=== PATIENT | male | born 1955 | race Caucasian/White ===

== ENCOUNTER → 2017-04-20 | Outpatient (CLI) | payer OTHER ==
[2017-04-20 12:19] LABS: Blood Urea Nitrogen 13 mg/dL (9-20); Non-African American GFR(MDRD) >60 (>60 ml/min/1.73 sqM)
--- NOTE | 2017-04-20 13:58 | CT ---
EXAMINATION TYPE: CT urogram wo/w con DATE OF EXAM: 04/20/2017 COMPARISON: 12/11/2014 HISTORY: Microscopic hematuria CT DLP: 2401 mGycm, Automated Exposure Control for Dose Reduction was Utilized. CONTRAST: CT scan of the abdomen and pelvis is performed with oral and without and with IV Contrast, patient in jected with 100 mL of Omnipaque 300. FINDINGS: LUNG BASES: Focal pleural thickening measuring 5 mm versus subpleural pulmonary nodule is seen along the anterior right lower lobe. LIVER/GB: No significant abnormality is appreciated. No radiopaque calculi within the gallbladder. PANCREAS: No significant abnormality is seen. SPLEEN: No significant abnormality is seen. ADRENALS: No significant abnormality is seen. KIDNEYS: 7 mm calculus of the posterior right inferior pole is seen within a distal calyx, this is un changed from the prior exam. Left lower pole renal sinus cyst is also seen measuring 1.9 cm. No evide nce of obstructive uropathy. No evidence of nephrolithiasis. Right upper pole probable cyst is 4 mm and too small to accurately characterize. BOWEL: No significant abnormality is seen. PROSTATE/SEMINAL VESICLES: Heterogenous containing central zone calcifications and enlarged measuring approximately 5.4 cm in transverse dimension. Left fat filled inguinal hernias noted. LYMPH NODES: No greater than 1cm abdominal or pelvic lymph nodes are appreciated. OSSEOUS STRUCTURES: No significant abnormality is seen. IMPRESSION: 1. Unchanged nonobstructing 7 mm right lower pole calculus within a peripheral minor calyx. No eviden ce of obstructive uropathy bilaterally. 2. Heterogenous and enlarged prostate gland containing central zone calcifications. 3. Left 1.9 cm renal sinus cyst. 4. Probable right upper pole renal cyst although this is 4 mm and too small to accurately characteriz e.
== END | disposition home or self-care (01) ==
LOC: RADCTMAIN 11:35
PROVIDERS: ATTEND Urology
DX: N20.0 Calculus of kidney (principal); N40.0 Benign prostatic hyperplasia without lower urinary tract symptoms; N28.1 Cyst of kidney, acquired
CPT/HCPCS: 82565; 84520; 74178; 36415; 74400; Q9967

== ENCOUNTER 2017-07-20 07:58 | Day surgery (SDC) | payer BC, OTHER ==
[2017-07-16 10:08] VITALS: BMI 26.9
[~2017-07-20 07:58] MED LIST: LACTATED RINGERS 1,000 ML IV SCH; LIDOCAINE 1% 20 ML VIAL (10MG/ML) FOR IV START INTRADERMA PRN
[2017-07-20 08:18] VITALS: TEMP 98.8
[2017-07-20] MEDS ORDERED: PROPOFOL 10 MG/ML 20 ML VIAL IV ONE (09:42)
--- NOTE | 2017-07-20 09:49 | P.GSHP ---
History of Present Illness H&P Date: 07/20/17 Chief Complaint: Screening colonoscopy This is a 62-year-old male referred from Dr. Moreno. Patient presents today for screening colonoscopy. He denies a significant GI complaints. Past Medical History Past Medical History: CVA/TIA, GERD/Reflux, Hyperlipidemia, Hypertension Additional Past Medical History / Comment(s): no deficits from CVA History of Any Multi-Drug Resistant Organisms: None Reported Additional Past Surgical History / Comment(s): dental implants Past Anesthesia/Blood Transfusion Reactions: No Reported Reaction Smoking Status: Never smoker - Past Family History Brother(s) Family Medical History: Cancer Additional Family Medical History / Comment(s): colon/bladder Medications and Allergies Home Medications Medication Instructions Recorded Confirmed Type Aspirin EC [Ecotrin] 325 mg PO DAILY 07/16/17 07/20/17 History Hydrochlorothiazide 25 mg PO DAILY 07/16/17 07/20/17 History [Hydrochlorothiazide] Ranitidine HCl [Zantac] 150 mg PO DAILY 07/16/17 07/20/17 History Simvastatin [Simvastatin] 40 mg PO DAILY 07/16/17 07/20/17 History Allergies Allergy/AdvReac Type Severity Reaction Status Date / Time No Known Allergies Allergy Verified 07/16/17 10:00 Surgical - Exam Vital Signs Temp Pulse Resp BP 98.8 F 74 16 140/85 07/20/17 08:13 07/20/17 08:13 07/20/17 08:13 07/20/17 08:13 - General well developed, no distress - Eyes PERRL - ENT normal pinna - Neck no masses - Respiratory normal expansion - Cardiovascular Rhythm: regular - Abdomen Abdomen: soft, non tender Assessment and Plan Assessment: We'll perform screening colonoscopy.
--- NOTE | 2017-07-20 10:06 | P.OP ---
Date of Procedure: 07/20/17 Preoperative Diagnosis: Screening colonoscopy Postoperative Diagnosis: Mild diverticulosis Procedure(s) Performed: Colonoscopy Anesthesia: MAC Surgeon: Moiz Saenz Pathology: none sent Condition: stable Disposition: PACU Description of Procedure: The patient's placed on the endoscopy table in the lateral position. She received IV sedation. Digital rectal exam was performed which revealed no ebonized. The prostate was symmetric without nodules. The flexible colonoscope was then placed patient anus passed throughout the entire colon. The ileocecal valve was visually is. The cecum, ascending and transverse colon appeared normal. The descending and sigmoid had mild diverticulosis. There is known to diverticulitis. Scope was then brought back the rectum and this appeared normal. Scope withdrawn for patient.
[2017-07-20 10:33] VITALS: BP 136/101; PULSE 70; RESP 16
== END 2017-07-20 10:56 | disposition home or self-care (01) ==
LOC: ORWHC2ENDO 07:58
PROVIDERS: ATTEND Surgery
DX: Z12.11 Encounter for screening for malignant neoplasm of colon (principal); K57.30 Diverticulosis of large intestine without perforation or abscess without bleeding; K57.32 Diverticulitis of large intestine without perforation or abscess without bleeding; K21.9 Gastro-esophageal reflux disease without esophagitis; E78.5 Hyperlipidemia, unspecified; I10 Essential (primary) hypertension; Z80.0 Family history of malignant neoplasm of digestive organs; Z79.82 Long term (current) use of aspirin; Z79.899 Other long term (current) drug therapy; Z86.73 Personal history of transient ischemic attack (TIA), and cerebral infarction without residual deficits; Z80.52 Family history of malignant neoplasm of bladder
CPT/HCPCS: J2704; G0105; 45378

== ENCOUNTER → 2020-12-18 | Outpatient (CLI) | payer MEDICARE | END | disposition home or self-care (01) | DX: Z01.812 Encounter for preprocedural laboratory examination (principal) | CPT/HCPCS: 80053; 81001; 85610; 85730; 87070 ==

== ENCOUNTER → 2020-12-18 | Outpatient (CLI) | payer MEDICARE | END | disposition home or self-care (01) | DX: Z01.812 Encounter for preprocedural laboratory examination (principal) | CPT/HCPCS: 36415; 85025; 86850; 86900; 86901 ==

== ENCOUNTER 2020-12-25 08:09 | Day surgery (SDC) | payer BC, MEDICARE ==
[2020-12-21 10:13] VITALS: BMI 26.1
[~2020-12-25 08:09] MED LIST changes: +ACETAMINOPHEN TAB 500 MG TAB PO PRN; +GABAPENTIN 300 MG CAP PO PRN; -LACTATED RINGERS 1,000 ML IV SCH; +LIDOCAINE 1% (10MG/ML) FOR IV START INTRADERMA PRN; -LIDOCAINE 1% 20 ML VIAL (10MG/ML) FOR IV START INTRADERMA PRN; +MELOXICAM 7.5 MG TAB PO PRN; +TRANEXAMIC ACID 1,000 MG in SODIUM CHLORIDE 0.9% 100 ML IVPB PRN
[2020-12-25] MEDS: LACTATED RINGERS 1,000 ML IV SCH ×2 (08:45→09:05)
[2020-12-25] MEDS: ONDANSETRON 4 MG/2 ML VIAL IVP ONE ×2 (08:56→16:28)
[2020-12-25] MEDS: DEXAMETHASONE SOD PHOSPHATE 4 MG/ML 1 ML VIAL IV ONE ×2 (08:56→16:28)
[2020-12-25] MEDS ORDERED: SCOPOLAMINE 1.5MG/72HR PATCH TRANSDERM ONE (08:59)
[2020-12-25] MEDS ORDERED: ROCURONIUM 10 MG/ML (5 ML VIAL) IV ONE (09:05)
[2020-12-25] MEDS ORDERED: HYDROmorphone 0.2 MG/1 ML SYRINGE IVP PRN (09:05)
[2020-12-25] MEDS ORDERED: SUCCINYLCHOLINE CHLORIDE 100 MG/5 ML SYR IV ONE (09:05)
[2020-12-25] MEDS ORDERED: fentaNYL (PF) 50 MCG/ML 2 ML AMP ONE (09:05)
[2020-12-25] MEDS ORDERED: ONDANSETRON 4 MG/2 ML VIAL IVP PRN (09:05)
[2020-12-25] MEDS ORDERED: HEPARIN SODIUM,PORCINE 10,000 UNIT/ML 1 ML VIAL ONE (09:05)
[2020-12-25] MEDS ORDERED: TRANEXAMIC ACID 1,000 MG/10 ML VIAL ONE (09:05)
[2020-12-25] MEDS ORDERED: LIDOCAINE 1% INJ 10MG/ML (20 ML MDV) ONE (09:05)
[2020-12-25] MEDS ORDERED: GLYCOPYRROLATE 0.2 MG/ML 2 ML VIAL ONE (09:05)
[2020-12-25] MEDS ORDERED: HYDROmorphone 0.5 MG/0.5 ML SYRINGE IVP PRN ×2 (09:05)
[2020-12-25] MEDS ORDERED: NEOSTIGMINE 1 MG/ML 10 ML VIAL ONE (09:05)
[2020-12-25] MEDS ORDERED: SODIUM CHLORIDE 0.9% IRRIG 1,000 ML BTL IRRIGATION ONE (09:05)
[2020-12-25] MEDS ORDERED: NALOXONE 0.4 MG/ML 1 ML VIAL IV PRN ×2 (09:05→15:27)
[2020-12-25] MEDS ORDERED: MIDAZOLAM 2 MG/2 ML VIAL ONE (09:05)
[2020-12-25] MEDS ORDERED: PROPOFOL 10 MG/ML 20 ML VIAL IV ONE (09:05)
[2020-12-25] MEDS ORDERED: SODIUM CHLORIDE 0.9% 100 ML BAG ONE (09:05)
[2020-12-25] MEDS ORDERED: ceFAZolin 1,000 MG in SODIUM CHLORIDE 0.9% 1,000 ML IRRIGATION ONE (09:05)
[2020-12-25] MEDS ORDERED: HYDROcodone/APAP 7.5-325MG 1 EACH TAB PO PRN ×3 (09:06→15:30)
[2020-12-25] MEDS: ROPIVACAINE/EPI/CLONIDINE/KET 50 ML SYRINGE MISCELLANE PRN ×2 (09:36→10:20)
--- NOTE | 2020-12-25 10:20 | P.OP ---
Date of Procedure: 12/25/20 Preoperative Diagnosis: severe osteoarthritis of the right hip Postoperative Diagnosis: severe osteoarthritis of the right hip Procedure(s) Performed: right total hip arthroplasty with a direct anterior approach Implants: [employer] Polarstem standard size 6 [employer] R3, 3 hole hemispherical acetabular shell, 52 mm [employer] Reflection 6.5 mm cancellus screw, 20 mm 2 [employer] R3, XLPE 20 acetabular liner [employer]hew Oxinium femoral head 36 m, +0 All components were press-fit. The articulation is Oxinium on polyethylene. Anesthesia: GETA Surgeon: Brian Malik Fiberglass Finisher #1: Arina Salinas Estimated Blood Loss (ml): 400 (141 mL returned with Cell Saver) Pathology: other (femoral head) Condition: stable Disposition: PACU Indications for Procedure: After failure of conservative treatment we discussed the surgical and nonsurgical treatment options at length. Patient wishes to proceed with a total hip arthroplasty with a direct anterior approach. Complications specific to this procedure were discussed at length, including but not limited to infection, leg length discrepancy, dislocation, nerve injury, and fracture. Covid-19 was also discussed at length with the patient, and they are aware of the current policies and procedures. The patient was given the option of delaying surgery, but they elect to proceed knowing these risks. Patient is aware of all these complications and informed consent was obtained Operative Findings: the operative findings are consistent with severe osteoarthritis of the right hip Description of Procedure: Patient was seen and evaluated in the preoperative area and the consent was reviewed. The operative site was marked with a skin marker. The patient was then brought to the operating room and given preoperative antibiotics intravenously. 1 g of Tranexamic acid was also given intravenously. A general anesthetic was administered by the anesthesia department. The patient was then placed on the Union table with the bony prominences well-padded. The hip area was then prepped with a ChloraPrep solution and draped in the usual sterile fashion. A universal timeout was then performed, which confirmed the patient's name, surgical site, ALLERGIES, and procedure being performed on the consent. Next the incision site was located at 1 cm distal to the anterior superior iliac spine along the flexion crease of the hip. The skin and subcutaneous tissues were sharply incised. Incision was carefully dissected down to the fascia overlying the tensor fascia geovany muscle. This fascia was then incised in line with the incision. Care was taken to stay laterally in order to avoid injuring the lateral femoral cutaneous nerve. Next, using blunt finger dissection, the tensor fascia geovany muscle was dissected off its investing fascia. The muscle was then carefully retracted laterally with a cobra retractor over the lateral neck of the femur. Next, the circumflex vessels were identified and cauterized using the AquaMantis device. The anterior hip capsule was then exposed. The capsule was then opened and an inverted T fashion. Cobra retractors were then placed intracapsularly. The retractors were maintained intracapsular throughout the procedure. The proximal femur was then visualized. A small amount of traction was placed on the leg. The femoral neck was then osteotomized appropriate level above the lesser trochanter. A small wedge of bone was then removed from the remaining femoral head. Next, using a corkscrew the femoral head was removed from the acetabulum. On gross visual inspection, the femoral head had complete loss of articular cartilage and multiple periarticular osteophytes. The femoral head was then measured. Attention was then turned to the acetabulum. The acetabulum was exposed and any remaining labrum was excised. Sequential reaming of the acetabulum was performed using fluoroscopic guidance until there was a good bed of bleeding cancellus bone. When the appropriate size was reached, a trial was then placed. The position and fit of the trial was checked with fluoroscopy. The trial was then removed. Then, using fluoroscopic guidance, the final implant was impacted at 20 of anteversion and 40 of abduction, and fully seated in the acetabulum. 2 screws were then placed in the acetabulum. Again fluoroscopy was used to check position of the screws. Next, the liner was then impacted, with a 20 elevated liner located in the anterior superior quadrant. Component locking was confirmed. Attention was then directed to the femur. With the aid of the Union table, the femur was externally rotated to approximately 130, extended, and adducted under the opposite leg. A side hook was then placed under the proximal femur, and the side hook elevator was used to elevate the proximal femur while releasing the capsule. Retractors were then placed. A capsular release was performed, as well as a release of the conjoined tendon, which afforded excellent visualization of the proximal femur. Next, a box osteotome was used to lateralize the proximal femur. A stock handler floorperson was then used to locate the femoral canal. Sequential broaching was then performed with appropriate size which afforded excellent fixation in the proximal femur. A trial was then placed with appropriate head and neck, and the hip was gently reduced with the aid of the Union table. Fluoroscopy was then used to check position of the components, as well as to ensure equal leg lengths. The hip was then gently dislocated and the trials were then removed. Final implants were then impacted and the hip was again reduced. Final fluoroscopic x-rays confirmed that the components were in anatomic position, as well as equal leg lengths. The hip was also taken through range of motion, and found to be stable. The hip was then copiously irrigated with antibiotic solution with pulsatile lavage. The hip was then irrigated with Irrisept solution. The soft tissues were then injected with a ropivacaine solution, which consisted of 246.25 mg of ropivacaine, 0.5 mg of epinephrine, 30 mg of Toradol, 80 g of clonidine, and 48.45 mL of sterile water, for a total of 100 mL of fluid injected. A second dose of 1 g of Tranexamic acid was also given intravenously. Any blood collected by Cell Saver was then returned to the patient at this time. The fascia was then closed with 2-0 strata fix suture. The subcutaneous tissue was closed with 3-0 Vicryl. The subcuticular tissue was closed with 3-0 strata fix suture. The skin was then closed with Exofin skin glue. After the glue and dried, and Optifoam silver impregnated dressing was applied. The patient was then transferred to the recovery room in stable condition. The boiler assistant operator BINTA Delgado was required due to the complexity of surgery, and the need for skilled certified surgical assistant for positioning, draping, exposure, retraction, and closure of the wound.
[2020-12-25] MEDS ORDERED: LACTATED RINGERS 1,000 ML IV ONE (10:30)
[2020-12-25] MEDS ORDERED: MEPERIDINE 50 MG/ML SYRINGE IVP ONE (10:45)
[2020-12-25] MEDS ORDERED: KETOROLAC 15 MG/ML 1 ML VIAL IVP ONE (10:56)
[2020-12-25] MEDS: HYDROmorphone 0.5 MG/0.5 ML SYRINGE IVP PRN ×4 (10:56→11:23)
[2020-12-25] MEDS ORDERED: ONDANSETRON 4 MG/2 ML VIAL IVP ONE (10:56)
--- NOTE | 2020-12-25 11:26 | XR ---
EXAMINATION TYPE: XR Hip Limited RT DATE OF EXAM: 12/25/2020 CLINICAL HISTORY: Right hip pain and osteoarthritis. TECHNIQUE: Single AP portable view of right hip is obtained immediately postoperatively. COMPARISON: CT 12/11/2014 FINDINGS: Metallic hardware from right hip arthroplasty is seen and appears satisfactory in alignment and position. There is evidence of recent surgery with subcutaneous gas noted laterally. IMPRESSION: Metallic hardware from right hip arthroplasty is satisfactory in position.
[2020-12-25] MEDS ORDERED: MAGNESIUM HYDROXIDE 2,400 MG/10 ML CUP PO PRN (15:27)
--- NOTE | 2020-12-25 16:10 | XR ---
Single view right hip paper image INDICATION: Postoperative right hip COMPARISON: 12/11/2014 FINDINGS: Patient is status post right hip replacement with 2 acetabular screws. For full details please see th e operative report. IMPRESSION: Patient is status post right hip replacement with 2 acetabular screws. For full details please see th e operative report.
[2020-12-25] MEDS: SODIUM CHLORIDE 0.9% 1,000 ML IV SCH ×2 (16:28→23:30)
--- NOTE | 2020-12-25 16:45 | P.CONS ---
History of Present Illness - Reason for Consult Consult date: 12/25/20 - History of Present Illness History of Presenting Illness: Patient is a 65-year-old male with a past medical history of hypertension, hyperlipidemia, CVA with left-sided deficit with decreased sensation and osteoarthritis. He is currently admitted under orthopedic surgery team status post elective right total hip replacement due to advanced osteoarthritis. We have been consulted to follow along with this patient throughout his hospitalization for continued medical management. Patient is currently postoperative period and reports having postoperative nausea and vomiting. Scopolamine patch in place. Patient given Zofran. Continue hydrated with gentle hydration with IV fluids and we will advance diet as patient tolerates. Patient currently denies having any headache, lightheadedness, dizziness, chest pain, palpitations, shortness of breath, or experiencing any new or worsened numbness/tingling/weakness in extremities. Patient does have left-sided decreased sensation from previous CVA in 2012 in which patient takes aspirin and atorvastatin daily. Patient denies history of DVT or PE. Reports postoperative pain manageable at this time. Review of systems: Pertinent positives and negatives as discussed in HPI, a complete review of systems was performed and all other systems are negative. Physical exam: General: non toxic, no distress, appears at stated age Derm: warm, dry Head: atraumatic, normocephalic, symmetric Eyes: EOMI, no lid lag, anicteric sclera Mouth: no lip lesion, mucus membranes moist Cardiovascular: S1-S2 normal with regular rate and rhythm. No murmurs, gallops, or rubs noted. Posterior tibial pulses palpated bilaterally. Cap refill less than 2 seconds. Lungs: Respirations even, regular, and unlabored on room air. Lungs clear to auscultation bilaterally with no wheezes, rhonchi, or rales noted. No accessory muscle usage. Abdominal: soft, nontender to palpation, no guarding, no appreciable organomegaly Ext: no gross muscle atrophy, no edema, no contractures Neuro: GCS 15. Speech clear. CN II-XI grossly intact, no focal neuro deficits Psych: Alert, oriented, appropriate affect Assessment and Plan of Care: Status post right hip replacement secondary to advanced osteoarthritis -Pain management, DVT prophylaxis, weightbearing, PT/OT, and dressing changes per primary admitting orthopedic surgery team. -DVT prophylaxis currently with aspirin, KELY hose, and SCDs Postoperative nausea and vomiting -Zofran as needed for nausea and vomiting -Gentle hydration with IV fluids and advance diet as patient tolerates. Hypertension -Monitor vital signs and continue daily medication regimen with hydrochlorothiazide. Hyperlipidemia -Continue daily medication regimen with atorvastatin. -Heart healthy diet. History with left-sided residual deficit of decreased sensation -Safe and supportive care with assistance as needed -Fall precautions. -Continue aspirin and atorvastatin. Thank you for allowing us to participate in the care of this pleasant patient. Do not hesitate to contact us with questions. Someone can be reached from the [facility] [place] hospitalist group all hours of the day at [phone] or via [employer]. Past Medical History Past Medical History: CVA/TIA, GERD/Reflux, Hyperlipidemia, Hypertension Additional Past Medical History / Comment(s): no deficits from CVA History of Any Multi-Drug Resistant Organisms: None Reported Past Surgical History: Orthopedic Surgery Additional Past Surgical History / Comment(s): dental implants, wisdom teeth, colonoscopy Past Anesthesia/Blood Transfusion Reactions: Postoperative Nausea & Vomiting (PONV) Past Psychological History: No Psychological Hx Reported Smoking Status: Never smoker Past Alcohol Use History: None Reported Past Drug Use History: None Reported - Past Family History Brother(s) Family Medical History: Cancer Additional Family Medical History / Comment(s): colon/bladder Medications and Allergies Home Medications Medication Instructions Recorded Confirmed Type Aspirin EC [Ecotrin] 325 mg PO DAILY 07/16/17 12/25/20 History Simvastatin 40 mg PO HS 07/16/17 12/25/20 History hydroCHLOROthiazide 25 mg PO HS 07/16/17 12/25/20 History [Hydrochlorothiazide] Acetaminophen Tab [Tylenol] 650 mg PO Q6H PRN 12/21/20 12/25/20 History Ibuprofen 200 - 600 mg PO Q6H PRN 12/21/20 12/25/20 History Aspirin 325 mg PO BID #60 tab 12/25/20 Rx Celecoxib [CeleBREX] 200 mg PO DAILY 5 Days #5 capsule 12/25/20 Rx HYDROcodone/APAP 7.5-325MG [[place] 1 - 2 tab PO Q6H PRN #32 tab 12/25/20 Rx 7.5-325] Ondansetron Odt [Zofran Odt] 1 tab PO Q8HR PRN #10 tab 12/25/20 Rx Sennosides [Senokot] 2 tab PO DAILY PRN #60 tablet 12/25/20 Rx Allergies Allergy/AdvReac Type Severity Reaction Status Date / Time No Known Allergies Allergy Verified 12/25/20 08:36 Physical Exam Vitals: Vital Signs Temp Pulse Pulse Pulse Resp BP BP 12/25/20 15:50 97.5 F L 58 L 18 132/77 12/25/20 15:42 60 20 144/80 12/25/20 15:08 67 20 126/79 12/25/20 14:59 71 20 121/78 12/25/20 14:41 68 18 114/76 12/25/20 14:30 75 20 123/72 12/25/20 14:00 56 L 18 132/85 12/25/20 13:30 58 L 20 134/87 12/25/20 13:00 58 L 20 134/70 12/25/20 12:45 57 L 18 140/84 12/25/20 12:30 58 L 20 12/25/20 12:19 61 20 133/83 12/25/20 11:54 67 18 151/87 12/25/20 11:33 78 20 156/78 12/25/20 11:16 57 L 16 151/82 12/25/20 11:02 58 L 16 151/85 12/25/20 10:48 56 L 16 170/93 12/25/20 10:37 97.0 F L 64 12 171/89 12/25/20 08:45 98.4 F 87 18 141/83 Pulse Ox 12/25/20 15:50 96 12/25/20 15:42 97 12/25/20 15:08 97 12/25/20 14:59 98 12/25/20 14:41 96 12/25/20 14:30 95 12/25/20 14:00 97 12/25/20 13:30 97 12/25/20 13:00 97 12/25/20 12:45 97 12/25/20 12:30 12/25/20 12:19 97 12/25/20 11:54 95 12/25/20 11:33 98 12/25/20 11:16 94 L 12/25/20 11:02 100 12/25/20 10:48 100 12/25/20 10:37 97 12/25/20 08:45 99 Intake and Output 12/25/20 12/25/20 12/25/20 06:59 14:59 22:59 Intake Total 2075 Output Total 400 Balance 1675 Intake: IV 2075 Output: Estimated Blood Loss 400 Other: Weight 79.4 kg 79.4 kg
--- NOTE | 2020-12-25 17:01 | FL ---
Fluoroscopy HISTORY: Hip arthroplasty 16 seconds fluoroscopy time supplied to the referring clinician. 2 intraoperative C-arm images docum ent the procedure. See dictated report from orthopedic surgery.
[2020-12-25] MEDS: HYDROcodone/APAP 7.5-325MG 1 EACH TAB PO PRN (19:19)
[2020-12-25] MEDS: ASPIRIN 325 MG TAB PO SCH (19:19)
[2020-12-25] MEDS ORDERED: hydroCHLOROthiazide 25 MG TAB PO SCH (21:00)
[2020-12-25] MEDS ORDERED: ATORVASTATIN 20 MG TAB PO SCH (21:00)
[2020-12-25] MEDS ORDERED: SENNOSIDES-DOCUSATE SODIUM 1 EACH TAB PO SCH (21:00)
[2020-12-26 02:37] VITALS: TEMP 98.9
[2020-12-26] MEDS: HYDROcodone/APAP 7.5-325MG 1 EACH TAB PO PRN (06:08)
[2020-12-26 06:45] LABS: Basophils % (A) 0 %; Eosinophils % (A) 0 %; HCT 33.9 % (39.0-53.0); HGB 11.6 gm/dL (13.0-17.5); Lymphocytes # (A) 1.5 k/uL (1.0-4.8); Lymphocytes % (A) 15 %; MCH 32.1 pg (25.0-35.0); MCHC 34.3 g/dL (31.0-37.0); MCV 93.7 fL (80.0-100.0); Mean Platelet Volume 7.9; Monocytes # (A) 0.7 k/uL (0-1.0); Monocytes % (A) 8 %; Neutrophils # (A) 7.4 k/uL (1.3-7.7); Neutrophils % (A) 76 %; Platelet Count 135 k/uL (150-450); RBC 3.62 m/uL (4.30-5.90); RDW 12.4 % (11.5-15.5); WBC 9.7 k/uL (3.8-10.6)
--- NOTE | 2020-12-26 07:21 | P.DS ---
Providers Date of admission: 12/25/2020 Expected date of discharge: 12/26/20 Attending physician: Brian Malik Consults: 12/25/20 16:18 Consult Physician Routine Consulting Provider: Juancarlos Santizo Consult Reason/Comments: medical management Do you want consulting provider notified?: Yes Primary care physician: Paulo Moreno - Discharge Diagnosis(es) (1) Osteoarthritis of right hip Current Visit: Yes Status: Acute (2) Status post total hip replacement, right Current Visit: Yes Status: Acute Hospital Course: This is a 65-year-old male with known history of degenerative arthritis of the right hip. The patient presents for evaluation. After discussion and consideration patient elects to proceed with total hip arthroplasty with direct anterior approach. The patient is seen preoperatively by his primary care physician and cleared for surgery. Patient is admitted to [facility] on 12/25/2020 for total hip arthroplasty with direct anterior approach. The procedures performed without complication or sequelae. The patient is doing well postoperatively. Labs and vital signs are stable on day of discharge. On day of discharge patient's hip incision is healing well. There is minimal erythema. There is no drainage noted at this time. There is minimal soft tissue swelling to the hip and thigh. Patient has full foot and ankle motion without difficulty or pain. Neurovascular status to the right lower extremity is intact. Patient is discharged to home in good condition. Please see med rec for accurate list of home medications. Patient Condition at Discharge: Good Plan - Discharge Summary Discharge Rx Participant: Yes New Discharge Prescriptions: New Aspirin 325 mg PO BID #60 tab Celecoxib [CeleBREX] 200 mg PO DAILY 5 Days #5 capsule HYDROcodone/APAP 7.5-325MG [[place] 7.5-325] 1 - 2 tab PO Q6H PRN #32 tab PRN Reason: Pain Sennosides [Senokot] 2 tab PO DAILY PRN #60 tablet PRN Reason: Constipation Ondansetron Odt [Zofran Odt] 1 tab PO Q8HR PRN #10 tab PRN Reason: Nausea No Action Aspirin EC [Ecotrin] 325 mg PO DAILY Simvastatin 40 mg PO HS hydroCHLOROthiazide [Hydrochlorothiazide] 25 mg PO HS Acetaminophen Tab [Tylenol] 650 mg PO Q6H PRN PRN Reason: Pain Ibuprofen 200 - 600 mg PO Q6H PRN PRN Reason: Pain Discharge Medication List Aspirin EC [Ecotrin] 325 mg PO DAILY 07/16/17 [History] Simvastatin 40 mg PO HS 07/16/17 [History] hydroCHLOROthiazide [Hydrochlorothiazide] 25 mg PO HS 07/16/17 [History] Acetaminophen Tab [Tylenol] 650 mg PO Q6H PRN 12/21/20 [History] Ibuprofen 200 - 600 mg PO Q6H PRN 12/21/20 [History] Aspirin 325 mg PO BID #60 tab 12/25/20 [Rx] Celecoxib [CeleBREX] 200 mg PO DAILY 5 Days #5 capsule 12/25/20 [Rx] HYDROcodone/APAP 7.5-325MG [[place] 7.5-325] 1 - 2 tab PO Q6H PRN #32 tab 12/25/20 [Rx] Ondansetron Odt [Zofran Odt] 1 tab PO Q8HR PRN #10 tab 12/25/20 [Rx] Sennosides [Senokot] 2 tab PO DAILY PRN #60 tablet 12/25/20 [Rx] Follow up Appointment(s)/Referral(s): [facility], [NON-STAFF] - Brian Malik DO [Doctor of Osteopathic Medicine] - 01/07/21 9:45 am Patient Instructions/Handouts: *Surgery [facility] - (Anesthesia) Discharge Instructions Outpatient Surgery, *Surgery [facility] - Scopalamine Patch Instructions, How to Use an Incentive Spirometer (DC), Total Hip Replacement (DC) Activity/Diet/Wound Care/Special Instructions: Weightbearing as tolerated with walker. Leave dressing intact. Dressing may be removed by home care nurse or by patient in 7 days. Then change dressing twice daily until follow up. May shower with initial dressing intact and after removal. If dressing become saturated, please remove. Please take aspirin 325mg twice daily for 30 days to prevent blood clots. Recommend use of compression stockings daily until follow up to help prevent swelling and blood clots. May remove at night before sleeping. Please follow[facility]up with [facility] 2 weeks and call with any questions or concerns, . Discharge Disposition: HOME WITH HOME HEALTH SERVICES
[2020-12-26 07:57] VITALS: BP 111/59; PULSE 74; RESP 17
[2020-12-26] MEDS: ASPIRIN 325 MG TAB PO SCH (08:33)
--- NOTE | 2020-12-26 10:56 | P.PN ---
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 He is currently admitted under orthopedic surgery team status post elective right total hip replacement due to advanced osteoarthritis. We have been consulted to follow along with this patient throughout his hospitalization for continued medical management. Patient is currently day 1 postop and is doing well. He has been ambulatory in room without difficulties. He states postoperative pain is managed and denies having any further episodes of nausea or vomiting. Patient tolerating oral intake without any difficulties. He denies having any headache, lightheadedness, dizziness, chest pain, palpitations, shortness of breath, or experiencing any numbness/swelling/weakness in his extremities. Physical exam: General: non toxic, no distress, appears at stated age Derm: warm, dry Head: atraumatic, normocephalic, symmetric Eyes: EOMI, no lid lag, anicteric sclera Mouth: no lip lesion, mucus membranes moist Cardiovascular: S1-S2 normal with regular rate and rhythm. No murmurs, gallops, or rubs noted. Posterior tibial pulses palpated bilaterally. Cap refill less than 2 seconds. Lungs: Respirations even, regular, and unlabored on room air. Lungs clear to auscultation bilaterally with no wheezes, rhonchi, or rales noted. No accessory muscle usage. Abdominal: soft, nontender to palpation, no guarding, no appreciable org anomegaly Ext: no gross muscle atrophy, no edema, no contractures. Postoperative dressing intact. No signs of bleeding or drainage. Neuro: GCS 15. Speech clear. CN II-XI grossly intact, no focal neuro deficits Psych: Alert, oriented, appropriate affect Assessment and Plan of Care: Status post right hip replacement secondary to advanced osteoarthritis -Pain management, DVT prophylaxis, weightbearing, PT/OT, and dressing changes per primary admitting orthopedic surgery team. -DVT prophylaxis currently with aspirin, KELY hose, and SCDs Postoperative nausea and vomiting, resolved Hypertension -Monitor vital signs and continue daily medication regimen with hydrochlorothiazide. Hyperlipidemia -Continue daily medication regimen with atorvastatin. -Heart healthy diet. History with left-sided residual deficit of decreased sensation -Safe and supportive care with assistance as needed -Fall precautions. -Continue aspirin and atorvastatin. Thank you for allowing us to participate in the care of this pleasant patient. Do not hesitate to contact us with questions. Someone can be reached from the [facility] hospitalist group all hours of the day at [phone] or via perfect serve. Objective - Vital Signs Vital signs: Vital Signs Temp 98.9 F 12/26/20 07:56 Pulse 74 12/26/20 07:56 Resp 17 12/26/20 07:56 BP 111/59 12/26/20 07:56 Pulse Ox 96 12/26/20 07:56 Intake & Output 12/25/20 12/26/20 12/26/20 18:59 06:59 18:59 Intake Total 2076 Output Total 400 550 Balance 1676 -550 Weight 79.4 kg Intake: IV 2075 Output: Urine 550 Estimated Blood Loss 400 - Labs CBC & Chem 7: 12/26/20 05:39 Labs: Abnormal Lab Results - Last 24 Hours (Table) 12/26/20 Range/Units 05:39 RBC 3.62 L (4.30-5.90) m/uL Hgb 11.6 L (13.0-17.5) gm/dL Hct 33.9 L (39.0-53.0) % Plt Count 135 L (150-450) k/uL
== END 2020-12-26 11:25 | disposition home health service (06) ==
LOC: OR 08:09 → EDSTATUS 09:20 → 4SSUR 10:42 → OR 12-26 11:25
PROVIDERS: ATTEND Orthopaedic Surgery
DX: M16.11 Unilateral primary osteoarthritis, right hip (principal); Z79.82 Long term (current) use of aspirin; Z79.899 Other long term (current) drug therapy; I10 Essential (primary) hypertension; E78.5 Hyperlipidemia, unspecified; I69.398 Other sequelae of cerebral infarction; K21.9 Gastro-esophageal reflux disease without esophagitis; Z79.1 Long term (current) use of non-steroidal anti-inflammatories (NSAID)
CPT/HCPCS: 27130; 97116; 97110; 97161; 97165; 86891; 85025; 88300; 73501; C1776; J2250; J1644; J1100; J2710; J2175; J0690 ×3; J2405; J2001; J3010; J1170; J1885; J0330; J2704; 86850; 86900; 86901

== ENCOUNTER → 2021-05-08 | Outpatient (CLI) | payer MEDICARE ==
--- NOTE | 2021-05-08 15:32 | US ---
EXAMINATION TYPE: US prostate transrectal DATE OF EXAM: 05/08/2021 COMPARISON: NONE CLINICAL HISTORY: R97.20 ELEV PROSTATE SPECIFIC ANTIGEN. recent UTI and was on antibiotics, PSA check 1 week prior and has elevated from around 1.4 to 6.4. Some nocturia but good flow This examination was performed using the transrectal probe. EXAM MEASUREMENTS: Gland Size: 5.3 x 5.3 x 3.4 Volume: 49.7ml Predicted PSA: 6.0 Actual PSA (if available):6.4 2 areas of focal hypoechoic echogenicity noted on the left #1 = 0.8 x 1.1 x 0.5cm #2 = 0.9 x 0.9 x 0.4cm IMPRESSION: Hypoechoic lesion left peripheral zone. Consider tissue diagnosis. Predicted PSA = volume x 0.12 ng/ml Calculated Volume = 0.5236 x L x W x H
== END | disposition home or self-care (01) ==
LOC: RADUSWWP 13:13
PROVIDERS: ATTEND Family Medicine
DX: N42.89 Other specified disorders of prostate (principal)
CPT/HCPCS: 76872

== ENCOUNTER → 2021-08-13 | Outpatient (CLI) | payer MEDICARE | END | disposition home or self-care (01) | LOC: LABWHC1 11:15 | PROVIDERS: ATTEND Urology | DX: R97.20 Elevated prostate specific antigen [PSA] (principal) | CPT/HCPCS: 36415; 84153 ==

== ENCOUNTER → 2021-08-30 | Outpatient (CLI) | payer MEDICARE ==
--- NOTE | 2021-08-30 10:52 | CT ---
EXAMINATION TYPE: CT abdomen pelvis wo con DATE OF EXAM: 08/30/2021 COMPARISON: 04/20/2017 urogram HISTORY: 66-year-old male R31.1, microscopic hematuria, N20.0, calculus of kidney CT DLP: 760 mGycm. Automated exposure control for dose reduction was used. TECHNIQUE: Contiguous axial scanning of the abdomen and pelvis without IV contrast. Coronal and sagit ellyn reconstructions performed. FINDINGS: Heart normal size without pericardial effusion. LAD and RCA coronary artery calcifications. Partially visualized, probably ectatic ascending aorta measuring at least 3.8 cm. 5 mm subpleural pulmonary nodule periphery of the right base, unchanged from 12/11/2014. Noncalcified pleural plaque posterior left lower lobe unchanged from 2015. No pleural effusion. Suspect a tiny hernia. Noncontrast appearance of the liver, gallbladder, adrenal glands, spleen, and pancreas show no gross abnormality. There is a 2.4 cm diverticulum of the second portion of the duodenum projecting along th e pancreatic head region. 8 mm calculus posterior right kidney is unchanged. A couple parapelvic cysts in the left kidney measu ring up to 7 mm are smaller than prior. No hydronephrosis. No ureteral calculus seen. Mild ectasia right common iliac artery up to 1.5 cm. No dilated small bowel, free fluid, or free air. No mesenteric or retroperitoneal lymphadenopathy. High riding cecum. Mild to moderate stool burden. Redundant sigmoid colon extending up into the right upper quadrant. No pericolonic inflammatory change. Bladder urine distended. Small left inguinal hernia. Prostate gland is enlarged measuring 5.2 cm wide , not significantly changed. Central prostatic calcifications and pelvic phleboliths noted. There is streak and beam hardening artifact from the patient's right hip arthroplasty limiting visualization o f pelvic structures. No obvious lymphadenopathy seen though, again, assessment is limited. No abnorma l fluid collection the pelvis. Bones: Right hip total arthroplasty. Moderate degenerative change left hip. Facet arthropathy lower l umbar spine. [facility] lower thoracic spine. IMPRESSION: 1. Unchanged 8 mm calculus posterior right kidney. No ureteral calculus or hydronephrosis seen. 2. Prostatomegaly of 5.2 cm wide. Bladder is urine distended. Limited detailed assessment due to pro minent metal hardware artifact relating to the patient's right hip replacement. 3. Incidental high riding cecum and redundant sigmoid colon extending up into the right upper quadra nt, likely normal variation.
== END | disposition home or self-care (01) ==
LOC: RADCTMAIN 09:05
PROVIDERS: ATTEND Urology
DX: N20.0 Calculus of kidney (principal); N40.0 Benign prostatic hyperplasia without lower urinary tract symptoms; N32.89 Other specified disorders of bladder; Z96.641 Presence of right artificial hip joint
CPT/HCPCS: 74176

== ENCOUNTER → 2021-10-24 | Outpatient (CLI) | payer MEDICARE | END | disposition home or self-care (01) | LOC: LABPAT 15:01 | PROVIDERS: ATTEND Surgery | DX: Z53.9 Procedure and treatment not carried out, unspecified reason (principal) ==